=== PATIENT | male | born 1985 | race African-American/Black ===

== ENCOUNTER 2018-03-21 14:01 | Emergency (ER) | payer MEDICAID, OTHER ==
[~2018-03-21] VITALS: Ht 180.3 cm; Wt 79.4 kg
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
[2018-03-21] MEDS ORDERED: Norco 5mg/325mg tab ORAL ONE (15:30)
[2018-03-21] MEDS ORDERED: IBUPROFEN600 MG ORAL (15:46)
[2018-03-21 16:42] VITALS: BP 116/70
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
--- NOTE | 2018-03-21 16:45 | Diagnostic Imaging Report ---
Indications: Reason For Exam: PAIN Technique: Two views of the right femur Comparison: None Findings: There is a comminuted fracture of the distal femoral shaft. There is some surrounding callus formation. The hardware appears to be intact. Old screw holes are seen in the proximal and mid femoral shaft. Impression: Status post surgical repair of recent distal femoral fracture. Intact hardware. Doubt acute reinjury although this is not completely excludable. Correlate with clinical findings
== END 2018-03-21 16:42 | disposition home or self-care (01) ==
LOC: EMR 14:55
DX: M25.561 Pain in right knee (principal); S72.391D Other fracture of shaft of right femur, subsequent encounter for closed fracture with routine healing; V49.9XXD Car occupant (driver) (passenger) injured in unspecified traffic accident, subsequent encounter; Z98.890 Other specified postprocedural states
CPT/HCPCS: 99284